=== PATIENT | male | born 1985 | race Caucasian/White ===

== ENCOUNTER 2019-07-15 20:14 | Emergency (ER) | payer MEDICAID, OTHER ==
[~2019-07-15] VITALS: Ht 182.9 cm; Wt 236.8 kg
--- NOTE | 2019-07-15 20:39 | NUR ---
Patient came to ER due to high BP which he took at home. Patient does not usually check his BP at home but has been out of his BP meds for seven days. He states he has a slight headache but thinks it may be from the cold he's had. Patient denies dizziness or photophobia. Patient is in no apparent distress and rests calmly in gurney.
[2019-07-15] MEDS ORDERED: LISINOPRIL 20 MG TABLET PO ONE (22:00)
[2019-07-15] MEDS ORDERED: LISINOPRIL 20 MG TABLET ONE (22:01)
[2019-07-15 22:12] VITALS: BP 142/65
--- NOTE | 2019-07-15 22:12 | NUR ---
patient medicated. discharged with prescription and instruction. verbalized understanding.
== END 2019-07-15 22:14 | disposition home or self-care (01) ==
LOC: ED 21:55
DX: J01.10 Acute frontal sinusitis, unspecified (principal); B97.89 Other viral agents as the cause of diseases classified elsewhere; Z76.0 Encounter for issue of repeat prescription; I10 Essential (primary) hypertension
CPT/HCPCS: 99283